=== PATIENT | female | born 1950 | race Caucasian/White ===

== ENCOUNTER 2018-11-09 05:36 | Inpatient (IN) | payer MEDICARE, BC ==
[2018-11-09] MEDS: LACTATED RINGER'S 1,000 ML IV* (06:00)
[2018-11-09] MEDS ORDERED: CEFAZOLIN 2 GM/50 ML (PMX) 50 ML IVPB (06:00)
[2018-11-09] MEDS ORDERED: MEPERIDINE 25 MG INJ IV (07:30)
[2018-11-09] MEDS ORDERED: ALBUTEROL 0.083% (NEB) 2.5 MG/3 ML AMP HHN (07:30)
[2018-11-09] MEDS ORDERED: FENTAnyl 50 MCG/ML VIAL IV ×2 (07:30)
[2018-11-09] MEDS ORDERED: METOCLOPRAMIDE 10 MG INJ IV (07:30)
[2018-11-09] MEDS ORDERED: DIPHENHYDRAMINE 50 MG INJ IV (07:30)
[2018-11-09] MEDS ORDERED: HYDROmorphONE 1 MG/5 ML IV SYRINGE IV (07:30)
[2018-11-09] MEDS ORDERED: FENTAnyl 50 MCG/ML VIAL ×4 (07:42→12:09)
[2018-11-09] MEDS ORDERED: CEFAZOLIN 1 GM INJ (07:42)
[2018-11-09] MEDS ORDERED: PROPOFOL 20 ML (07:42)
[2018-11-09] MEDS ORDERED: SUCCINYLCHOLINE CHLORIDE 100 MG/5 ML SYG IV (07:42)
[2018-11-09] MEDS ORDERED: LIDOCAINE 100 MG SYRINGE (07:42)
[2018-11-09] MEDS ORDERED: MIDAZOLAM 1 MG/ML 2 ML INJ (08:04)
[2018-11-09] MEDS: HEPARIN 1000 UNITS/ML 10 ML INJ (08:50)
[2018-11-09] MEDS: BUPIVACAINE 0.5%/EPI (SDV) 30 ML INJ ×2 (08:53→14:46)
[2018-11-09] MEDS: CEFAZOLIN 1 GM INJ (09:18)
[2018-11-09] MEDS: THROMBIN (BOVINE) 5,000 UNIT VIAL TP (09:19)
[2018-11-09] MEDS: HEMOSTATIC MATRIX SYG ZFS (09:19)
[2018-11-09] MEDS: GELATIN SIZE 100 SPONGE (09:20)
[2018-11-09] MEDS ORDERED: DEXAMETHASONE 4 MG/ML 5 ML INJ (11:10)
[2018-11-09] MEDS ORDERED: NACL 0.9% 3 ML SYG IV (15:00)
[2018-11-09] MEDS ORDERED: AL HYDROX/MG HYDROX/SIMETH 30 ML CUP PO (15:00)
[2018-11-09] MEDS ORDERED: HYDROCODONE/APAP (5/325) TAB PO ×2 (15:00)
[2018-11-09] MEDS ORDERED: ACETAMINOPHEN 325 MG TAB PO (15:00)
[2018-11-09] MEDS ORDERED: NALOXONE (0.4 MG/ML) INJ IV (15:00)
[2018-11-09] MEDS ORDERED: PROCHLORPERAZINE 10 MG TAB PO (15:00)
[2018-11-09] MEDS: HYDROmorphONE 1 MG/5 ML IV SYRINGE IV ×2 (15:34→15:38)
[2018-11-09] MEDS: ONDANSETRON 4 MG INJ IV (15:34)
[2018-11-09] MEDS: FENTAnyl 50 MCG/ML VIAL IV ×2 (15:40→15:53)
[2018-11-09] MEDS: HYDROmorphONE 0.2 MG/ML PCA IV (16:08)
[2018-11-09] MEDS ORDERED: ZOLPIDEM 5 MG TAB PO (17:00)
[2018-11-09] MEDS: CEFAZOLIN 1 GM/50 ML (PMX) 50 ML IVPB (17:40)
[2018-11-09] MEDS: QUETIAPINE 25 MG TAB PO (20:37)
[2018-11-09] MEDS: ATORVASTATIN 40 MG TAB PO (20:37)
[2018-11-09] MEDS ORDERED: QUETIAPINE 25 MG TAB PO (21:00)
[2018-11-10] MEDS: SUVOREXANT 10 MG PO (00:21)
[2018-11-10] MEDS: CEFAZOLIN 1 GM/50 ML (PMX) 50 ML IVPB ×3 (00:31→12:31)
[2018-11-10] MEDS: SUVOREXANT PO ×2 (01:50→22:20)
[2018-11-10] MEDS: HYDROmorphONE 0.2 MG/ML PCA IV ×2 (01:56→14:46)
[2018-11-10] MEDS ORDERED: BUPROPION (XL) 150 MG TAB PO (09:00)
[2018-11-10] MEDS ORDERED: CITALOPRAM 20 MG TAB PO (09:00)
[2018-11-10] MEDS ORDERED: THYROID 60 MG TAB PO (09:00)
[2018-11-10] MEDS: QUETIAPINE 25 MG TAB PO ×2 (09:00→21:15)
[2018-11-10] MEDS: CITALOPRAM 20 MG TAB PO (09:00)
[2018-11-10] MEDS: DOCUSATE SODIUM 100 MG CAP PO ×2 (10:11→21:14)
[2018-11-10] MEDS: BUPROPION (XL) 150 MG TAB PO (10:11)
[2018-11-10] MEDS: THYROID 60 MG TAB PO (10:12)
[2018-11-10 10:28] LABS: HEMATOCRIT 26.7 % (37.0-47.0); HEMOGLOBIN 8.9 g/dl (12.0-16.0)
[2018-11-10 10:41] LABS: ANION GAP 8 (5-13); BLOOD UREA NITROGEN 9 mg/dl (7-20); CALCIUM 8.4 mg/dl (8.4-10.2); CARBON DIOXIDE 29 mmol/L (21-31); CHLORIDE 102 mmol/L (97-110); CREATININE 0.67 mg/dl (0.44-1.00); Estimated GFR > 60 mL/min (>60); GLUCOSE 91 mg/dl (70-220); POTASSIUM 3.9 mmol/L (3.5-5.1); SODIUM 139 mmol/L (135-144)
[2018-11-10] MEDS: ACETAMINOPHEN 1000MG/100ML IV 100 ML IVPB (14:15)
[2018-11-10] MEDS: DEXAMETHASONE 10 MG/ML 1 ML INJ IV (15:54)
[2018-11-10] MEDS: ATORVASTATIN 40 MG TAB PO (21:14)
[2018-11-11 08:56] LABS: ADD MAN DIFF? NO
[2018-11-11 08:59] LABS: BASOPHILS % 0.1 % (0.0-2.0); HEMATOCRIT 26.8 % (37.0-47.0); HEMOGLOBIN 8.8 g/dl (12.0-16.0); LYMPHOCYTES # 1.3 10^3/ul (0.8-2.9); LYMPHOCYTES % 12.2 % (15.0-51.0); MEAN CORPUSCULAR HEMOGLOBIN 29.9 pg (29.0-33.0); MEAN CORPUSCULAR HGB CONC 32.8 g/dl (32.0-37.0); MEAN CORPUSCULAR VOLUME 91.2 fl (82.0-101.0); MEAN PLATELET VOLUME 10.2 fl (7.4-10.4); MONOCYTE # 1.1 10^3/ul (0.3-0.9); MONOCYTES % 10.4 % (0.0-11.0); NEUTROPHIL # 7.9 10^3/ul (1.6-7.5); NEUTROPHILS % 76.4 % (39.0-77.0); PLATELET COUNT 220 10^3/UL (140-415); RED BLOOD COUNT 2.94 10^6/ul (4.20-5.40); RED CELL DISTRIBUTION WIDTH 12.4 % (11.5-14.5)
[2018-11-11 08:59] LABS: WHITE BLOOD COUNT 10.3 10^3/ul (4.8-10.8)
[2018-11-11 09:16] LABS: IRON 17 ug/dl (35-150)
[2018-11-11] MEDS: THYROID 60 MG TAB PO (09:23)
[2018-11-11] MEDS: CITALOPRAM 20 MG TAB PO (09:23)
[2018-11-11] MEDS: DOCUSATE SODIUM 100 MG CAP PO ×2 (09:23→20:45)
[2018-11-11] MEDS: QUETIAPINE 25 MG TAB PO ×2 (09:23→20:45)
[2018-11-11] MEDS: BUPROPION (XL) 150 MG TAB PO (09:23)
[2018-11-11 09:26] LABS: % IRON SATURATION 7 % SAT (22-52); ANION GAP 8 (5-13); BLOOD UREA NITROGEN 8 mg/dl (7-20); CALCIUM 8.5 mg/dl (8.4-10.2); CARBON DIOXIDE 30 mmol/L (21-31); CHLORIDE 101 mmol/L (97-110); CREATININE 0.63 mg/dl (0.44-1.00); Estimated GFR > 60 mL/min (>60); GLUCOSE 95 mg/dl (70-220); MAGNESIUM 2.1 mg/dl (1.7-2.5); PHOSPHORUS 2.7 mg/dl (2.5-4.9); POTASSIUM 3.8 mmol/L (3.5-5.1); SODIUM 139 mmol/L (135-144); TOTAL IRON BINDING CAPACITY 234 ug/dl (241-421)
[2018-11-11 09:53] LABS: FERRITIN 63.6 ng/ml (11.1-264.0)
[2018-11-11] MEDS ORDERED: METHOCARBAMOL 500 MG TAB PO (10:30)
[2018-11-11] MEDS ORDERED: HYDROmorphONE 0.5 MG/0.5 ML SYG IV (10:30)
[2018-11-11] MEDS: OXYCODONE/ACETAMINOPHEN (5/325) TAB PO ×3 (11:23→23:02)
[2018-11-11] MEDS: ATORVASTATIN 40 MG TAB PO (20:45)
[2018-11-11] MEDS: FERROUS FUMARATE (SR) TAB PO (20:45)
[2018-11-11] MEDS: SUVOREXANT PO (22:13)
[2018-11-12] MEDS: OXYCODONE/ACETAMINOPHEN (5/325) TAB PO ×2 (05:37→11:52)
[2018-11-12] MEDS: CITALOPRAM 20 MG TAB PO (08:27)
[2018-11-12] MEDS: DOCUSATE SODIUM 100 MG CAP PO ×2 (08:27→20:54)
[2018-11-12] MEDS: QUETIAPINE 25 MG TAB PO ×2 (08:27→20:54)
[2018-11-12] MEDS: FERROUS FUMARATE (SR) TAB PO ×2 (08:27→20:54)
[2018-11-12] MEDS: BUPROPION (XL) 150 MG TAB PO (08:28)
[2018-11-12] MEDS: THYROID 60 MG TAB PO (08:28)
[2018-11-12 10:33] LABS: ADD MAN DIFF? NO
[2018-11-12 10:35] LABS: BASOPHILS % 0.2 % (0.0-2.0); EOSINOPHILS % 0.5 % (0.0-7.0); HEMATOCRIT 25.6 % (37.0-47.0); HEMOGLOBIN 8.5 g/dl (12.0-16.0); LYMPHOCYTES # 1.1 10^3/ul (0.8-2.9); LYMPHOCYTES % 13.8 % (15.0-51.0); MEAN CORPUSCULAR HEMOGLOBIN 30.4 pg (29.0-33.0); MEAN CORPUSCULAR HGB CONC 33.2 g/dl (32.0-37.0); MEAN CORPUSCULAR VOLUME 91.4 fl (82.0-101.0); MEAN PLATELET VOLUME 9.6 fl (7.4-10.4); MONOCYTE # 0.7 10^3/ul (0.3-0.9); MONOCYTES % 9.1 % (0.0-11.0); NEUTROPHIL # 6.1 10^3/ul (1.6-7.5); NEUTROPHILS % 75.3 % (39.0-77.0); PLATELET COUNT 210 10^3/UL (140-415); RED CELL DISTRIBUTION WIDTH 12.6 % (11.5-14.5)
[2018-11-12 10:35] LABS: WHITE BLOOD COUNT 8.1 10^3/ul (4.8-10.8)
[2018-11-12] MEDS ORDERED: KETOROLAC 30 MG INJ IV (12:30)
[2018-11-12] MEDS: GABAPENTIN 300 MG CAP PO ×2 (14:12→20:54)
[2018-11-12] MEDS: KETOROLAC 30 MG INJ IV ×2 (14:12→20:00)
[2018-11-12] MEDS: ATORVASTATIN 40 MG TAB PO (20:54)
[2018-11-12] MEDS: ONDANSETRON 4 MG INJ IV (22:02)
[2018-11-12] MEDS: SUVOREXANT PO (22:17)
[2018-11-13] MEDS: OXYCODONE/ACETAMINOPHEN (5/325) TAB PO ×2 (07:09→12:04)
[2018-11-13] MEDS: DOCUSATE SODIUM 100 MG CAP PO (09:00)
[2018-11-13] MEDS: QUETIAPINE 25 MG TAB PO (09:00)
[2018-11-13] MEDS: CITALOPRAM 20 MG TAB PO (09:39)
[2018-11-13] MEDS: BUPROPION (XL) 150 MG TAB PO (09:40)
[2018-11-13] MEDS: GABAPENTIN 300 MG CAP PO ×2 (09:41→13:16)
[2018-11-13] MEDS: THYROID 60 MG TAB PO (09:41)
[2018-11-13] MEDS: FERROUS FUMARATE (SR) TAB PO (09:41)
[2018-11-13 10:14] LABS: ADD MAN DIFF? NO
[2018-11-13 10:17] LABS: BASOPHILS % 0.3 % (0.0-2.0); EOSINOPHILS # 0.1 10^3/ul (0.0-0.5); EOSINOPHILS % 0.7 % (0.0-7.0); HEMATOCRIT 28.6 % (37.0-47.0); HEMOGLOBIN 9.4 g/dl (12.0-16.0); LYMPHOCYTES # 0.9 10^3/ul (0.8-2.9); LYMPHOCYTES % 7.2 % (15.0-51.0); MEAN CORPUSCULAR HEMOGLOBIN 30.4 pg (29.0-33.0); MEAN CORPUSCULAR HGB CONC 32.9 g/dl (32.0-37.0); MEAN CORPUSCULAR VOLUME 92.6 fl (82.0-101.0); MEAN PLATELET VOLUME 9.6 fl (7.4-10.4); MONOCYTE # 0.7 10^3/ul (0.3-0.9); NEUTROPHIL # 11.2 10^3/ul (1.6-7.5); PLATELET COUNT 318 10^3/UL (140-415); RED BLOOD COUNT 3.09 10^6/ul (4.20-5.40); RED CELL DISTRIBUTION WIDTH 12.9 % (11.5-14.5)
[2018-11-13 10:34] LABS: ANION GAP 10 (5-13); BLOOD UREA NITROGEN 12 mg/dl (7-20); CALCIUM 8.9 mg/dl (8.4-10.2); CARBON DIOXIDE 28 mmol/L (21-31); CHLORIDE 102 mmol/L (97-110); CREATININE 0.75 mg/dl (0.44-1.00); Estimated GFR > 60 mL/min (>60); GLUCOSE 125 mg/dl (70-220); MAGNESIUM 2.1 mg/dl (1.7-2.5); PHOSPHORUS 3.3 mg/dl (2.5-4.9); POTASSIUM 3.5 mmol/L (3.5-5.1); SODIUM 140 mmol/L (135-144)
== END 2018-11-13 14:55 | disposition home or self-care (01) | DRG 455 ==
LOC: REC 05:36 → MS1 17:00
PROC: 0SG10A0 Fusion of 2 or more Lumbar Vertebral Joints with Interbody Fusion Device, Anterior Approach, Anterior Column, Open Approach (ICD-10-PCS; principal; 2018-11-09 07:30)
PROC: 0SG10K1 Fusion of 2 or more Lumbar Vertebral Joints with Nonautologous Tissue Substitute, Posterior Approach, Posterior Column, Open Approach (ICD-10-PCS; 2018-11-09 07:30)
PROC: 0SB20ZZ Excision of Lumbar Vertebral Disc, Open Approach (ICD-10-PCS; 2018-11-09 07:30)
PROC: 4A11X4G Monitoring of Peripheral Nervous Electrical Activity, Intraoperative, External Approach (ICD-10-PCS; 2018-11-09 07:30)
DX: M51.36 Other intervertebral disc degeneration, lumbar region (principal); M48.061 Spinal stenosis, lumbar region without neurogenic claudication; M41.86 Other forms of scoliosis, lumbar region; K58.9 Irritable bowel syndrome, unspecified; F41.9 Anxiety disorder, unspecified; I45.10 Unspecified right bundle-branch block; E03.9 Hypothyroidism, unspecified; G47.00 Insomnia, unspecified; E78.5 Hyperlipidemia, unspecified; D50.9 Iron deficiency anemia, unspecified; F39 Unspecified mood [affective] disorder; M25.552 Pain in left hip; M79.605 Pain in left leg
CPT/HCPCS: 72100; 72110; 80048; 82728; 83540; 83735; 84100; 85014; 85018; 85025; 86850; 86900; 86901; 86920; 87086; 97110; 97116; 97162; 97530

== ENCOUNTER → 2018-11-19 | Outpatient (CLI) | payer MEDICARE, BC | END | disposition home or self-care (01) | LOC: VAS 11:15 | DX: M79.662 Pain in left lower leg (principal); M79.661 Pain in right lower leg; R22.43 Localized swelling, mass and lump, lower limb, bilateral | CPT/HCPCS: 93970 ==